=== PATIENT | male | born 1995 | race Two or more races ===

== ENCOUNTER 2018-06-28 19:17 | Emergency (ER) | payer MEDICAID ==
[~2018-06-28] VITALS: Ht 170.2 cm; Wt 81.6 kg
--- NOTE | 2018-06-28 19:25 | NUR ---
PT JUST WENT TO THE BATHROOM PRIOR TO TRIAGE. PT IS UNABLE TO GIVE A URINE SAMPLE AT THIS TIME.
--- NOTE | 2018-06-28 19:25 | NUR ---
PT AMBULATED TO ER #1 WITH A STEADY GAIT. PT IS C/O LOWER ABD PAIN AND TESTICULAR PAIN. PT IS C/O NAUSEA, BUT DENIES VOMITTING. PT STATED THAT THE PAIN STARTED AROUND 1500 TODAY.
--- NOTE | 2018-06-28 19:30 | NUR ---
PT IS AMBULATING TO THE BATHROOM TO TRY AND GIVE A URINE SAMPLE.
--- NOTE | 2018-06-28 19:37 | NUR ---
DR. OLVERA IS AT THE BEDSIDE.
[2018-06-28 19:41] LABS: BASOPHILS # (AUTO) 0.1 /CMM (0.0-0.2); BASOPHILS % (AUTO) 0.7 % (0.0-2.0); EOSINOPHILS % (AUTO) 0.6 % (0.0-6.0); HEMATOCRIT 47 % (39-51); HEMOGLOBIN 15.9 g/dL (13.5-17.5); LYMPHOCYTES # (AUTO) 1.3 /CMM (0.8-4.8); LYMPHOCYTES % (AUTO) 9.7 % (20.0-44.0); MEAN CORPUSCULAR HGB CONC 34 g/dl (31.0-36.0); MEAN CORPUSCULAR VOLUME 93 fL (80-96); MONOCYTES # (AUTO) 0.6 /CMM (0.1-1.30); MONOCYTES % (AUTO) 4.7 % (2.0-12.0); NEUTROPHILS # (AUTO) 11.1 /CMM (1.8-8.9); NEUTROPHILS % (AUTO) 84.3 % (43.0-81.0); PLATELET COUNT (AUTO) 274 /CMM (150-450); RED BLOOD CELL COUNT(AUTO) 5.01 MIL/uL (4.5-6.0); WHITE BLOOD COUNT (AUTO) 13.2 K/uL (4.3-11.0)
[2018-06-28 19:42] LABS: APPEARANCE,URINE Slightly Cloudy (CLEAR); BILIRUBIN,URINE SMALL (NEGATIVE); BLOOD, URINE Large Ery/uL (NEGATIVE); COLOR,URINE Amber (YELLOW); KETONES,URINE 80 (NEGATIVE); LEUKOCYTE ESTERASE ,URINE Negative (NEGATIVE); NITRITE, URINE Negative (NEGATIVE); PH,URINE 5.5 (5.0-8.0); PROTEIN,URINE >=300 mg/dl (NEGATIVE); UGLUCOSE Negative (NEGATIVE); UROBILINOGEN,URINE 0.2 EU/dL (0.2)
[2018-06-28 19:49] LABS: RBC,URINE 51-80 /HPF (0-2)
[2018-06-28] MEDS ORDERED: ONDANSETRON HCL/PF 4 MG/2 ML VIAL ONE ×2 (19:49→21:23)
[2018-06-28] MEDS ORDERED: KETOROLAC TROMETHAMINE INJ 30 MG/ML VIAL ONE (19:49)
[2018-06-28 19:50] LABS: BACTERIA,URINE Moderate /HPF (None Seen); SQUAMOUS EPITHELIAL CELL,UR Rare /HPF (None Seen); WBC,URINE 0-2 /HPF (0-3)
[2018-06-28 19:52] LABS: CREATININE 1.2 mg/dL (0.6-1.3); POTASSIUM 3.7 mmol/L (3.5-5.1)
[2018-06-28 19:58] LABS: ALBUMIN 4.5 g/dL (3.4-5.0); BILIRUBIN,DIRECT 0.2 mg/dL (0.0-0.2); BILIRUBIN,TOTAL 0.7 mg/dL (0.2-1.0); TOTAL PROTEIN, SERUM 7.8 g/dL (6.4-8.2)
[2018-06-28] MEDS ORDERED: IV NS 0.9% 1,000 ML BAG IV ONE (20:00)
[2018-06-28] MEDS ORDERED: ONDANSETRON HCL/PF - ER 4 MG/2 ML VIAL IV ONE ×2 (20:00→21:30)
[2018-06-28] MEDS ORDERED: KETOROLAC TROMETHAMINE INJ 30 MG/ML VIAL IV ONE (20:00)
--- NOTE | 2018-06-28 21:07 | NUR ---
PT AMBULATED TO THE BATHROOM WITH A STEADY GAIT.
[2018-06-28] MEDS ORDERED: LIDOCAINE /MPF 1% VIAL 5 ML VIAL ONE (21:13)
[2018-06-28] MEDS ORDERED: AZITHROMYCIN 250 MG TABLET ONE (21:13)
[2018-06-28] MEDS ORDERED: CEFTRIAXONE 500 MG VIAL ONE (21:13)
[2018-06-28] MEDS ORDERED: MORPHINE SULFATE INJ 4 MG/ML DISP.SYRIN ONE (21:24)
[2018-06-28] MEDS ORDERED: CEFTRIAXONE 500 MG VIAL IM ONE (21:30)
[2018-06-28] MEDS ORDERED: MORPHINE SULFATE INJ 2 MG/ML DISP.SYRIN IV ONE (21:30)
[2018-06-28] MEDS ORDERED: AZITHROMYCIN 250 MG TABLET PO ONE (21:30)
--- NOTE | 2018-06-28 21:39 | NUR ---
XRAY IN PROGRESS AT THE BEDSIDE.
--- NOTE | 2018-06-28 21:51 | NUR ---
IV removed. Catheter intact and site benign. Pressure and 4x4 applied to site. No bleeding noted. Patient discharged to home in stable condition. Written and verbal after care instructions given. Patient verbalizes understanding of instruction AND RX. PT AMBULATED TO THE BATHROOM AND THEN OUT WITH A STEADY GAIT. VSS. PT WAS INSTRUCTED TO RETURN IN 8-12 HOURS FOR RE-EVALUATION.
[2018-06-28 21:54] VITALS: BP 118/74
== END 2018-06-28 21:55 | disposition home or self-care (01) ==
LOC: ER 19:18
DX: A64 Unspecified sexually transmitted disease (principal); N43.3 Hydrocele, unspecified; R31.9 Hematuria, unspecified; N50.3 Cyst of epididymis; F31.9 Bipolar disorder, unspecified; F10.10 Alcohol abuse, uncomplicated; E86.0 Dehydration; Y90.0 Blood alcohol level of less than 20 mg/100 ml
CPT/HCPCS: 36415; 76870; 80048; 80076; 81001; 83690; 85025; 87086; 96361; 96372; 96374; 96375; 96376; 99284; A4606; G0480; J0696; J1885; J2270; J2405 ×2; J3490; J7030; Z7610; 81000-TC